=== PATIENT | female | born 2000 | race Caucasian/White ===

== ENCOUNTER 2023-12-23 23:15 | Emergency (ER) | payer MEDICAID ==
[~2023-12-23] VITALS: Ht 175.3 cm; Wt 123.8 kg
[2023-12-23 23:23] VITALS: BP 126/66; PULSE 103; RESP 22; TEMP 97.8; O2SAT 96
[2023-12-23] MEDS: FAMOTIDINE 20 MG/2 ML VIAL IVP ONE (23:51)
[2023-12-23] MEDS: diphenhydrAMINE 50 MG/ML VIAL IVP ONE (23:51)
[2023-12-23] MEDS: methylPREDNISolone SS 125 MG/2 ML VIAL IVP ONE (23:53)
[2023-12-24 01:11] VITALS: BP 120/78; PULSE 92; RESP 16; O2SAT 98
[2023-12-24] MEDS ORDERED: PRED20TA5 PO (01:22)
[2023-12-24] MEDS ORDERED: FAMO-90 PO (01:22)
[2023-12-24] MEDS ORDERED: DIPH25TA53 PO (01:22)
== END 2023-12-24 01:48 | disposition home or self-care (01) ==
LOC: MED 23:15
DX: L50.9 Urticaria, unspecified (principal); L29.9 Pruritus, unspecified; T49.0X5A Adverse effect of local antifungal, anti-infective and anti-inflammatory drugs, initial encounter; J45.909 Unspecified asthma, uncomplicated; Z79.899 Other long term (current) drug therapy; Z88.8 Allergy status to other drugs, medicaments and biological substances; Y92.89 Other specified places as the place of occurrence of the external cause
CPT/HCPCS: 96374; 96375; 99284; J1200; J2919; J3490